=== PATIENT | female | born 1955 | race Two or more races ===

== ENCOUNTER 2020-09-05 18:16 | Emergency (ER) | payer MEDICARE, OTHER ==
[~2020-09-05] VITALS: Ht 162.6 cm; Wt 109.8 kg
[2020-09-05] MEDS ORDERED: ASPIRIN 81 MG TABLET CHEW ONE (18:35)
--- NOTE | 2020-09-05 18:57 | NUR ---
PIV STARTED, LABS DRAWN, PT MEDICATED PER EMAR. PT HYPERTENSIVE, OTHER VS WDL. CONNECTED TO ALL MONITORING. EDIL.
[2020-09-05] MEDS ORDERED: ASPIRIN 81 MG TABLET CHEW PO ONE (19:00)
[2020-09-05] MEDS ORDERED: PLEASE ENTER HEIGHT AND WEIGHT MC SCH (19:00)
--- NOTE | 2020-09-05 19:02 | NUR ---
REPORT TO MIN HUGHES.
--- NOTE | 2020-09-05 19:03 | NUR ---
RECEIVED REPORT ON PT. PT AWAKE AND ALERT. ON CR MONITOR.
[2020-09-05 19:09] LABS: BASOPHILS % (AUTO) 1 % (0-1); EOSINOPHILS % (AUTO) 5 % (1-7); LYMPHOCYTES % (AUTO) 29 % (22-44); MEAN CORPUSCULAR HEMOGLOBIN 31.8 pg (27.0-34.8); MEAN CORPUSCULAR HGB CONC 33.7 g/dL (32.4-35.8); MEAN PLATELET VOLUME 7.3 fL (7.4-10.4); MONOCYTES % (AUTO) 8 % (2-9); NEUTROPHILS % (AUTO) 57 % (42-75); PLATELET COUNT 375 x10^3/uL (130-400); RED BLOOD COUNT 4.47 x10^6/uL (3.82-5.3); RED CELL DISTRIBUTION WIDTH 14.1 % (9.6-15.2)
[2020-09-05 19:22] LABS: ALANINE AMINOTRANSFERASE 36 U/L (12-78); ALBUMIN 3.7 g/dL (3.4-5.0); ANION GAP 8 mmol/L (5-15); CALCIUM 8.6 mg/dL (8.5-10.1); CHLORIDE 108 mmol/L (98-107)
[2020-09-05 19:26] LABS: ALKALINE PHOSPHATASE 112 U/L (45-117); BILIRUBIN,TOTAL 0.3 mg/dL (0.2-1.0); TOTAL PROTEIN 7.5 g/dL (6.4-8.2); TROPONIN I < 0.015 ng/mL (0.000-0.045)
[2020-09-05 19:57] LABS: MD SCAN
[2020-09-05] MEDS ORDERED: LISINOPRIL 10 MG TABLET ONE (20:18)
[2020-09-05] MEDS ORDERED: LISINOPRIL 10 MG TABLET PO ONE (20:30)
[2020-09-05 20:45] VITALS: BP 132/68
== END 2020-09-05 20:49 | disposition home or self-care (01) ==
LOC: ED 20:06
DX: I10 Essential (primary) hypertension (principal); R94.31 Abnormal electrocardiogram [ECG] [EKG]
CPT/HCPCS: 36415; 71045; 80053; 84484; 85025; 93005; 99285